=== PATIENT | female | born 1990 | race Caucasian/White ===

== ENCOUNTER 2017-03-21 19:22 | Observation (INO) | payer MEDICAID | END 2017-03-21 20:57 | disposition home or self-care (01) | DRG 566 | LOC: LDRP 19:22 | PROVIDERS: ADMIT Specialist; ATTEND Specialist | DX: O26.853 Spotting complicating pregnancy, third trimester (principal); Z3A.30 30 weeks gestation of pregnancy | CPT/HCPCS: 59025; 76815; 80307; 81002; G0378 ==